=== PATIENT | male | born 1995 | race Caucasian/White ===

== ENCOUNTER 2020-11-22 22:11 | Emergency (ER) | payer OTHER ==
[2020-11-22 22:19] VITALS: BP 130/78; PULSE 101; TEMP 98.2; BMI 26.5
[2020-11-22] MEDS ORDERED: FAMOTIDINE 20 MG/50 ML IVPB 20 MG/50 ML MG IVPB ONE (23:53)
[2020-11-22] MEDS ORDERED: ACETAMINOPHEN 325 MG TABLET (FP) PO ONE (23:53)
[2020-11-22] MEDS ORDERED: MAG HYDROX/AL HYDROX/SIMETH 30 ML UNIT-DOSE CUP PO ONE (23:53)
[2020-11-23] MEDS ORDERED: FAMOTIDINE 20 MG TABLET PO ONE
[2020-11-23] MEDS ORDERED: ACETAMINOPHEN 325 MG TABLET (FP) ONE (00:01)
[2020-11-23] MEDS ORDERED: FAMOTIDINE 20 MG TABLET ONE (00:02)
[2020-11-23] MEDS ORDERED: MAG HYDROX/AL HYDROX/SIMETH 30 ML UNIT-DOSE CUP ONE (00:02)
== END 2020-11-23 00:30 | disposition home or self-care (01) ==
LOC: JER 22:11
DX: R07.89 Other chest pain (principal)
CPT/HCPCS: 71046-TC-FY; 93005; 93010; 99284-25

== ENCOUNTER 2021-06-18 17:56 | Emergency (ER) | payer OTHER ==
[2021-06-18 18:13] VITALS: BP 129/77; PULSE 89; TEMP 98; BMI 26.5
== END 2021-06-18 19:30 | disposition home or self-care (01) ==
LOC: JERFT 17:56
DX: R06.02 Shortness of breath (principal)
CPT/HCPCS: 71046-TC-FY; 99283-25

== ENCOUNTER 2021-07-31 13:47 | Emergency (ER) | payer OTHER ==
[2021-07-31 14:11] VITALS: BMI 25.1
[2021-07-31] MEDS ORDERED: MECLIZINE HCL 25 MG TABLET (FP) PO ONE (14:33)
[2021-07-31] MEDS ORDERED: MECLIZINE HCL 25 MG TABLET (FP) ONE (14:38)
[2021-07-31 14:57] LABS: BASO % 0.8 % (0-2.0); EOS % 1.7 % (0-4.5); HEMOGLOBIN 14.9 GM/dL (11.7-16.9); MCHC 34.7 g/dl (32.0-35.9); MEAN CELL VOLUME 89.2 fl (80-96); MEAN PLT VOLUME 7.2 fl (7.5-11.1); MONO % 15.5 % (3.8-10.2); PLATELET COUNT 259 10^3/uL (134-434); RBC 4.82 M/mm3 (4.00-5.60); RDW 13.1 % (11.9-15.9); WHITE BLOOD COUNT 3.2 K/mm3 (4.0-10.0)
[2021-07-31 15:28] LABS: ALBUMIN 4.6 g/dl (3.4-5.0); BLOOD UREA NITROGEN 8.6 mg/dL (7-18); CALCIUM 9.8 mg/dL (8.5-10.1); MAGNESIUM 2.1 mg/dL (1.8-2.4)
[2021-07-31 15:31] LABS: CREATININE 0.9 mg/dL (0.55-1.3)
[2021-07-31 15:33] LABS: BILIRUBIN,TOTAL 0.6 mg/dL (0.2-1); TOT PROT 8.2 g/dl (6.4-8.2)
[2021-07-31 16:22] VITALS: BP 126/78; PULSE 60; TEMP 97.8
== END 2021-07-31 16:23 | disposition home or self-care (01) ==
LOC: JERFT 13:47 → JER 13:47 → JERFT 16:23
DX: R42 Dizziness and giddiness (principal)
CPT/HCPCS: 36415; 80053; 83735; 84484; 85025; 93005; 93010; 99284-25